=== PATIENT | female | born 1955 | race Caucasian/White ===

== ENCOUNTER 2020-04-08 08:35 | Outpatient (CLI) | payer OTHER, SELFPAY ==
--- NOTE | ~2020-04-08 | MM_ITS ---
CORRECTED REPORT Ordering doctor corrected, changed to Dr. Silvestre Willoughby. 04/14/20 sef EXAMINATION: MM screening [facility] BI w [facility] HISTORY: Screening mammogram TECHNIQUE: Craniocaudal and mediolateral oblique 3-D tomosynthesis images were obtained and synthetic 2-D images were generated. CAD analysis was submitted and interpreted. COMPARISON: 07/12/2018, 03/29/2017 bilateral digital screening mammogram examinations 04/04/2017 diagnostic left digital mammogram and complete left breast ultrasound BREAST PARENCHYMAL COMPOSITION: The breasts are heterogeneously dense, which may obscure small masses. FINDINGS: Stable architectural distortion on the left likely related to history of prior benign left breast (biopsy. There is no evidence of suspicious mass, calcification, or interval architectural distortion to suggest malignancy in either breast. There has been no suspicious interval change. IMPRESSION: 1. No mammographic evidence of malignancy. 2. Recommend routine screening mammography in one year. BI-RADS Category 2: Benign finding(s). Reviewed, dictated and finalized at location A. MTDD
== END 2020-04-08 08:36 | disposition home or self-care (01) ==
PROVIDERS: PCP Student in an Organized Health Care Education/Training Program; Visit Provider Student in an Organized Health Care Education/Training Program
DX: Z12.31 Encounter for screening mammogram for malignant neoplasm of breast (principal)
CPT/HCPCS: 77063; 77067

== ENCOUNTER 2021-05-23 08:36 | Outpatient (CLI) | payer OTHER, SELFPAY ==
--- NOTE | ~2021-05-23 | MM_ITS ---
EXAMINATION: MM screening [facility] BI w [facility] HISTORY: Screening TECHNIQUE: Craniocaudal and mediolateral oblique 3-D tomosynthesis images were obtained and synthetic 2-D images were generated. CAD analysis was submitted and interpreted. COMPARISON: Comparison to multiple prior studies sequentially, with oldest reviewed study dated 02/03. BREAST PARENCHYMAL COMPOSITION: The breasts are heterogeneously dense, which may obscure small masses . FINDINGS: There is no evidence of suspicious mass, calcification, or architectural distortion to sugg est malignancy in either breast. There has been no suspicious interval change. IMPRESSION: 1. No mammographic evidence of malignancy. 2. Recommend routine screening mammography in one year. BI-RADS Category 1: Negative Reviewed, dictated and finalized at location A.
--- NOTE | ~2021-05-23 | DEXA_ITS ---
Bone Density Report Name: Keren Franco Age: 65 Sex: Female Ethnicity: White Date of : 1955 Indication: osteopenia; height loss; hysterectomy; postmenopausal Referring Provider: Fartun, Silvestre Study: Bone densitometry was performed. Exam Date: May 23, 2021 Accession number: [id number] Bone Density: Region BMD T-score Z-score Classification AP Spine (L1-L4) 0.846 -1.8 0.1 Osteopenia Femoral Neck (Left) 0.659 -1.7 -0.1 Osteopenia Total Hip (Left) 0.808 -1.1 0.3 Osteopenia Total Hip Bilateral Avg 0.826 -1.0 0.4 Osteopenia Femoral Neck (Right) 0.674 -1.6 0.1 Osteopenia Total Hip (Right) 0.842 -0.8 0.5 Normal World Health Organization criteria for BMD impression classify patients as: Normal (T-score at or above -1.0), Osteopenia (T-score between -1.0 and -2.5), or Osteoporosis (T-score at or below -2.5). 10-year Fracture Risk(1): Major Osteoporotic Fracture 9.7% Hip Fracture 1.3% Reported Risk Factors: [place] (), Neck BMD=0.659, BMI=32.2 (1) FRAX(R) Version 3.08. Fracture probability calculated for an untreated patient. Fracture probability may be lower if the patient has received treatment. Previous Exams: Region Exam Age BMD T-score BMD Change BMD Change Date g/cm2 vs Baseline vs Previous AP Spine(L1-L4) 05/23/2021 65 0.846 -1.8 -0.120(-12.4%) 0.017(2.0%) 02/04/2016 60 0.829 -2.0 -0.137(-14.1%) -0.137(-14.1%) 09/19/2007 51 0.966 -0.7 Total Hip(Left) 05/23/2021 65 0.808 -1.1 -0.157(-16.3%) -0.067(-7.7%)* 02/04/2016 60 0.875 -0.5 -0.090(-9.3%)# -0.090(-9.3%)# 09/19/2007 51 0.965 0.2 Total Hip(Right) 05/23/2021 65 0.842 -0.8 -0.144(-14.6%) -0.068(-7.5%)* 02/04/2016 60 0.911 -0.3 -0.076(-7.7%)# -0.076(-7.7%)# 09/19/2007 51 0.987 0.4 *Denotes significance at 95% confidence level, LSC for AP Spine = 0.022 g/cm2, LSC for Total Hip = 0.027 g/cm2 Clinical Information Provided by Patient: Has used the following medications: Vitamin D, Calcium Has the following medical conditions: Hysterectomy Patient maximum height was 63 Menopause Age: 48 No regular weight bearing exercise Does not regularly consume dairy products Drinks caffeinated beverages Onset of menses at age 9 Number of children 4 Impression: The patient has low bone mass, based on the Total Spine T-score. The patient has an estimated ten-year risk of hip fracture of 1.3% and an estimated ten-year risk of ma
== END 2021-05-23 08:37 | disposition home or self-care (01) ==
LOC: ANHIMG 08:36
PROVIDERS: PCP Student in an Organized Health Care Education/Training Program; Visit Provider Student in an Organized Health Care Education/Training Program
DX: Z12.31 Encounter for screening mammogram for malignant neoplasm of breast (principal); Z78.0 Asymptomatic menopausal state; M85.88 Other specified disorders of bone density and structure, other site; M85.852 Other specified disorders of bone density and structure, left thigh; M85.851 Other specified disorders of bone density and structure, right thigh
CPT/HCPCS: 77063; 77067; 77080

== ENCOUNTER 2022-07-04 09:57 | Outpatient (CLI) | payer OTHER, SELFPAY ==
--- NOTE | ~2022-07-04 | MM_ITS ---
EXAMINATION: MM screening [facility] BI w [facility] HISTORY: Screening mammogram TECHNIQUE: Craniocaudal and mediolateral oblique 3-D tomosynthesis images were obtained and synthetic 2-D images were generated. CAD analysis was submitted and interpreted. COMPARISON: 05/23/2021, 04/08/2020, 07/12/2018 BREAST PARENCHYMAL COMPOSITION: The breasts are heterogeneously dense, which may obscure small masses . FINDINGS: There is no suspicious mass, calcification, or architectural distortion to suggest malignan cy in either breast. There has been no suspicious interval change. IMPRESSION: 1. No mammographic evidence of malignancy. 2. Recommend routine screening mammography in one year. BI-RADS Category 1: Negative Reviewed, dictated and finalized at location A.
== END 2022-07-04 09:58 | disposition home or self-care (01) ==
PROVIDERS: PCP Student in an Organized Health Care Education/Training Program; Visit Provider Student in an Organized Health Care Education/Training Program
DX: Z12.31 Encounter for screening mammogram for malignant neoplasm of breast (principal)
CPT/HCPCS: 77063; 77067

== ENCOUNTER 2023-07-13 08:16 | Outpatient (CLI) | payer OTHER, SELFPAY ==
--- NOTE | ~2023-07-13 | DEXA_ITS ---
Bone Density Report Name: PAULA WEN Age: 67 Sex: Female Ethnicity: White Date of : 1955 Indication: osteopenia; height loss; hysterectomy; postmenopausal Referring Provider: MINNIE, ABE Study: Bone densitometry was performed. Exam Date: July 13, 2023 Accession number: [id number] Bone Density: Region BMD T-score Z-score Classification AP Spine(L1-L4) 0.810 -2.2 -0.1 Osteopenia Femoral Neck (Left) 0.657 -1.7 0.0 Osteopenia Total Hip (Left) 0.780 -1.3 0.2 Osteopenia Femoral Neck (Right) 0.694 -1.4 0.4 Osteopenia Total Hip (Right) 0.804 -1.1 0.3 Osteopenia Total Hip Mean 0.792 -1.2 0.3 Osteopenia World Health Organization criteria for BMD impression classify patients as: Normal (T-score at or above -1.0), Osteopenia (T-score between -1.0 and -2.5), or Osteoporosis (T-score at or below -2.5). 10-year Fracture Risk(1): Major Osteoporotic Fracture 10.0% Hip Fracture 1.6% Reported Risk Factors: [place] (), Neck BMD=0.657, BMI=31.5 (1) FRAX(R) Version 3.08. Fracture probability calculated for an untreated patient. Fracture probability may be lower if the patient has received treatment. Previous Exams: Region Exam Age BMD T-score BMD Change BMD Change Date g/cm2 vs Baseline vs Previous AP Spine (L1-L4) 07/13/2023 67 0.810 -2.2 -0.019 (-2.3%) -0.036 (-4.2%) 05/23/2021 65 0.846 -1.8 0.017 (2.0%) 0.017 (2.0%) 02/04/2016 60 0.829 -2.0 Total Hip(Left) 07/13/2023 67 0.780 -1.3 -0.096 (-10.9% -0.029 (-3.5%) 05/23/2021 65 0.808 -1.1 -0.067 (-7.7%) -0.067 (-7.7%) 02/04/2016 60 0.875 -0.5 Total Hip(Right) 07/13/2023 67 0.804 -1.1 -0.107 (-11.8% -0.039 (-4.6%) 05/23/2021 65 0.842 -0.8 -0.068 (-7.5%) -0.068 (-7.5%) 02/04/2016 60 0.911 -0.3 *Denotes significance at 95% confidence level, LSC for AP Spine = 0.022 g/cm2, LSC for Total Hip = 0.027 g/cm2 # Denotes dissimilar scan types or analysis methods Clinical Information Provided by Patient: Has used the following medications: Vitamin D, Calcium Has the following medical conditions: Hysterectomy Patient maximum height was 63 Menopause Age: 48 Does not regularly consume dairy products Drinks caffeinated beverages Onset of menses at age 10 Number of children 4 Impression: The patient has low bone mass, based on the Total Spine T-score. The patient has an estimated ten-year risk of hip fracture of
--- NOTE | ~2023-07-13 | MM_ITS ---
EXAMINATION: MM screening [facility] BI w [facility] HISTORY: Screening TECHNIQUE: Craniocaudal and mediolateral oblique 3-D tomosynthesis images were obtained and synthetic 2-D images were generated. CAD analysis was submitted and interpreted. COMPARISON: Comparison to multiple prior studies sequentially, with oldest reviewed study dated 02/2017. BREAST PARENCHYMAL COMPOSITION: The breasts are heterogeneously dense, which may obscure small masses FINDINGS: There is no evidence of suspicious mass, calcification, or architectural distortion to sugg est malignancy in either breast. There has been no suspicious interval change. IMPRESSION: 1. No mammographic evidence of malignancy. 2. Recommend routine screening mammography in one year. BI-RADS Category 1: Negative Reviewed, dictated and finalized at location A.
== END 2023-07-13 08:17 | disposition home or self-care (01) ==
LOC: ANHIMG 08:21
PROVIDERS: PCP Student in an Organized Health Care Education/Training Program; Visit Provider Student in an Organized Health Care Education/Training Program
DX: Z12.31 Encounter for screening mammogram for malignant neoplasm of breast (principal); Z78.0 Asymptomatic menopausal state; M85.88 Other specified disorders of bone density and structure, other site; M85.852 Other specified disorders of bone density and structure, left thigh; M85.851 Other specified disorders of bone density and structure, right thigh
CPT/HCPCS: 77063; 77067; 77080

== ENCOUNTER 2024-08-26 08:12 | Outpatient (CLI) | payer OTHER, SELFPAY ==
--- NOTE | ~2024-08-26 | MM_ITS ---
EXAMINATION: MM screening [facility] BI w [facility] HISTORY: Screening TECHNIQUE: Craniocaudal and mediolateral oblique 3-D tomosynthesis images were obtained and synthetic 2-D images were generated. CAD analysis was submitted and interpreted. COMPARISON: Comparison to multiple prior studies sequentially, with oldest reviewed study dated 07/12. BREAST PARENCHYMAL COMPOSITION: Dense: The breasts are heterogeneously dense, which may obscure small masses FINDINGS: There is no evidence of suspicious mass, calcification, or architectural distortion to sugg est malignancy in either breast. There has been no suspicious interval change. IMPRESSION: 1. No mammographic evidence of malignancy. 2. Recommend routine screening mammography in one year. BI-RADS Category 1: Negative Reviewed, dictated and finalized at location B.
== END 2024-08-26 08:13 | disposition home or self-care (01) ==
PROVIDERS: PCP Student in an Organized Health Care Education/Training Program; Visit Provider Student in an Organized Health Care Education/Training Program
DX: Z12.31 Encounter for screening mammogram for malignant neoplasm of breast (principal)
CPT/HCPCS: 77063; 77067

== ENCOUNTER 2025-07-09 09:35 | Outpatient (CLI) | payer OTHER, SELFPAY | END 2025-07-09 09:36 | disposition home or self-care (01) | LOC: ANHAUDIO 09:36 | PROVIDERS: PCP Student in an Organized Health Care Education/Training Program; Visit Provider Student in an Organized Health Care Education/Training Program | DX: H91.90 Unspecified hearing loss, unspecified ear (principal) | CPT/HCPCS: 92557; 92567 ==

== ENCOUNTER 2025-09-17 08:39 | Outpatient (CLI) | payer OTHER, SELFPAY ==
--- NOTE | ~2025-09-17 | MM_ITS ---
EXAMINATION: MM screening jessie BI w katya HISTORY: Screening TECHNIQUE: Craniocaudal and mediolateral oblique 3-D tomosynthesis images were obtained and synthetic 2-D images were generated. CAD analysis was submitted and interpreted. COMPARISON: Comparison to multiple prior studies sequentially, with oldest reviewed study dated , 04/08/2020 BREAST PARENCHYMAL COMPOSITION: The breasts are heterogeneously dense, which may obscure small masses. FINDINGS: There is no evidence of suspicious mass, calcification, or architectural distortion to suggest malignancy in either breast. IMPRESSION: 1. No mammographic evidence of malignancy. 2. Recommend routine screening mammography in one year. BI-RADS Category 1: Negative Reviewed, dictated and finalized at location B.
--- OUTSIDE RECORDS SUMMARY | 2025-09-17 08:53 | XMS_ITS | Encounter Summary ---
Author Organization [facility] Address [address] [place] [id number] Care Team Providers Care Seamstress Fitter Name Role Phone Silvestre Willoughby DO Primary Care Provider + Encounter Details Date Type Department Care Team (Late Contact Info) Description 08/28/2024 PreAppst Message Enc [facility] Family & Internal Medicine [facility] [address] [place] [address] Silvestre Willoughby DO [address] [place], [place] [phone] Mammogram Results Social History Tobacco Use Types Packs/Day Years Used Date Smoking Tobacco: Never Passive Smoke Exposure: Past Smokeless Tobacco: Never Comments:Not a smoker Alcohol Use Standard Drinks/Week Comments Never 0 (1 standard drink = 0.6 oz pur e alcohol) AUDIT-C Answer Date Recorded Frequency of Alcohol Consumption Never 03/29/2020 Average Number of Drinks Not on file 020 Frequency of Binge Drinking Not on file 02/2020 PHQ-2 Answer Date Recorded Patient Health Questionnaire-2 Score 0 06/23/2024 Comments No Sex and Gender Information Value Date Recorded Sex Assigned at Female 04/30/2025 8:07 AM CDT Legal 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 Gender Identity Female 04/30/2025 8:07 AM CDT Sexual Orientation Not on file Occupation Industry Job Start Date Job End Date Not on file Not on file Not on file Not on file documented as of this encounter Plan of Treatment Upcoming Encounters Date Type Department Care Team (Late st Contact Info) Description 06/29/2026 7:20 AM CDT Office Visit [facility] Family & Internal Medicine - [address] [phone] Silvestre Willoughby DO [address] [place] [phone] documented as of this encounter Visit Diagnoses Not on filedocumented in this encounter Additional Health Concerns Assessment Noted Time PHQ-9 Depression Total Score: 1 04/13/20 21 9:47 AM CDT documented as of this encounter Care Teams Seamstress Fitter Relationship Specialty Start Date End Date Silvestre Willoughby DO [address] [place] [id number] PCP - General FAMILY PRACTICE 03/29/20 documented as of this encounter
--- OUTSIDE RECORDS SUMMARY | 2025-09-17 08:53 | XMS_ITS | Clinical Summary ---
Author Organization [facility] Address [address] [place] [address] Care Team Providers Care Police Chief Deputy Name Role Phone Silvestre Willoughby Primary Care Provider + Allergies Active Allergy Reactions Criticality Noted Date Comments Tape Hives Low 04/06/2021 Not IV tape, has only had it happen with surgical barrier used with incisions Medications Multiple Vitamins-Minerals (HEALTHY EYES/LUTEIN OR) Acti ve aspirin EC 325 MG tablet Take 1 tablet (325 mg total) by mouth as needed for Pain. Active B complex-C Cap capsule Take 1 capsule by mouth daily. Active calcium carb-cholecalcife rol (CALTRATE+D) 600-10 MG-MCG Tab tablet Take 1 tablet by mouth 2 (two) times daily. Active Vitamin D3 (CHOLECALCIFEROL) 50 mcg tablet Take 1 tablet (2,000 Units total) by mouth daily. Active vitamin C (ASCORBIC ACID) 1000 MG tablet Take 1 tablet (1,000 mg total) by mouth daily. Active losartan (COZAAR) 50 MG tabletIndications :Primary hypertension Take 1 tablet (50 mg total) by mouth daily. 90 tablet 3 5 Active omeprazole (PRILOSEC) 40 MG capsuleIndication s:Gastroesophagea l reflux disease, unspecified whether esophagitis present,Annual physical exam Take 1 capsule (40 mg total) by mouth daily. 90 capsule 3 5 Active Active Problems Problem Noted Date Diagnosed Date Hyperlipidemia, unspecified hyperlipidemia type 06/23/2024 Vitamin D deficiency 06/23/2024 Chronic pain of both knees 06/23/2024 Osteopenia, unspecified location 04/06/2021 Essential hypertension 05/03/2020 BMI 31.0-31.9,adult 03/29/2020 Gastroesophageal reflux dise ase, unspecified whether esophagitis present 03/29/2020 Elevated blood pressure reading 03/29/2020 Abnormal mammogram 04/05/2017 Encounters Date Type Department Care Team Description 07/01/2025 Results Follow-Up [facility] Family & Internal Medicine [address] [phone] Silvestre Willoughby, HEMOGLOBIN, GLYCOSYLATED, URIC ACID BLOOD, VITAMIN D, 25 OH, Additional followed-up results: 4 06/25/2025 7:20 AM CDT Office Visit [facility] Family & Internal [address] [address] Silvestre Willoughby, Annual 06/25/2025 Travel from Last 3 Months Immunizations Immunization Administration Dates Next Due Flublok (Quadrivalent) 01/29/2019 Influenza (Generic) 01/29/2019 Pneumococcal (Pneumovax 23) 01/29/2019 Pneumococcal (Prevnar 13) 04/11/2023 Tdap (Generic) 01/28/2018 Family History Medical History Relation Comments Heart Attack Brother Stent Cardiac Brother Heart Attack Father Dementia Mother Hypertension Mother Valve Disease Mother Aortic Breast Cancer Paternal Aunt Heart Attack Paternal Grandfather Heart Attack Paternal Grandmother CABG Sister 1 Coronary artery disease Sister 1 Heart Attack Sister 1 Hypertension Sister 1 Heart murmur Sister 2 Hypertension Sister 2 Hypertension Sister 3 Diabetes Sister 4 Hypertension Sister 4 Myocaridal bridge Sister 4 Relation Status Comments Brother Alive Father Mother Alive Paternal Aunt Paternal Grandfather Paternal Grandmother Sister 1 Alive Sister 2 Alive Sister 3 Alive Sister 4 Alive Social History Tobacco Use Types Packs/Day Years Used Date Smoking Tobacco: Never Passive Smoke Exposure: Past Smokeless Tobacco: Never Tobacco Cessation:Counseling Given: No Comments:Not a smoker Alcohol Use Standard Drinks/Week Comments Never 0 (1 standard drink = 0.6 oz pur e alcohol) AUDIT-C Answer Date Recorded Frequency of Alcohol Consumption Never 03/29/2020 Average Number of Drinks Not on file 020 Frequency of Binge Drinking Not on file 02/2020 PHQ-2 Answer Date Recorded Patient Health Questionnaire-2 Score 0 04/30/2025 Comments No Sex and Gender Information Value Date Recorded Sex Assigned at Female 04/30/2025 8:07 AM CDT 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 Gender Identity Female 04/30/2025 8:07 AM CDT Sexual Orientation Not on file Occupation Industry Job Start Date Job End Date Not on file Not on file Not on file Not on file Last Filed Vital Signs Vital Sign Reading Time Taken Comments Blood Pressure 136/70 06/25/2025 7:20 AM CDT Pulse 60 06/25/2025 7:20 AM CDT Temperature 36 C (96.8 F) 06/25/2025 7:20 AM CDT Respiratory Rate 16 04/30/2025 8:08 AM CDT Oxygen Saturation 98% 06/25/2025 7:20 AM CDT Inhaled Oxygen Concentration - - Weight 75.3 kg (166 lb 1.6 oz) 06/25/2025 7:20 A M CDT Height 162.6 cm (5' 4) 06/25/2025 7:20 AM CDT Body Mass Index 28.51 06/25/2025 7:20 AM CDT Plan of Treatment Upcoming Encounters Date Type Department Care Team (Late st Contact Info) Description 06/29/2026 7:20 AM CDT Office Visit [facility] Family & Internal Medicine [address] [phone] Silvestre Willoughby, [address] [place] [address] Health Maintenance Due Date Last Done Comments Zoster Vaccines (1 of 2) 2003 Annual Medicare Wellness Visit 04/14/2022 04/13/2021 Dexa Scan (General) 07/13/2025 07/13/2023, 05/23/2021, 02/04/2016, Additional history exists COVID-19 Vaccine (1 - season) 2025 Influenza Adult (#1) 2025 01/29/2019, 01/30/20 19 DTaP, Tdap and Td Vaccines (2 - Td or Tdap) 01/29/2028 01/28/2018 RSV Immunization or 60+ Years (1 - 1-dose 75+ series) 2028 Colorectal Cancer Screening Colonoscopy (10 Years) 08/15/2031 08/15/2021, 08/15/2021, 08/15/2021 Hepatitis C Completed 03/29/2020 Pneumococcal Vaccine: 50+ Years Completed 04/11/2023, 01/29/2019 PHQ-2 (Physician [place]) Completed 04/30/2025 Hepatitis A Vaccines Aged Out No long er eligible based on patient's age to complete this topic Meningococcal B Vaccine Aged Out No l onger eligible based on patient's age to complete this topic Meningococcal Vaccine Aged Out No annelise brittaney eligible based on patient's age to complete this topic RSV Immunizations Under 20 Months Aged Out No longer eligible based on patient's age to complete this topic Procedures Procedure Name Priority Date/Time Associated Diagnosis Comments CBC W/DIFF AUTOMATED Routine 06/25/2025 7:55 AM CDT Hyperlipidemia, unspecified hyperlipidemia type Elevated fasting glucose Osteopenia, unspecified location COMPREHENSIVE METABOLIC PANEL Routine 06/25/2025 7:55 AM CDT Hyperlipidemia, unspecified hyperlipidemia type Elevated fasting glucose Osteopenia, unspecified location TSH W/REFLEX Routine 06/25/2025 7:55 AM CDT Hyperlipidemia, unspecified hyperlipidemia type Elevated fasting glucose Osteopenia, unspecified location LIPID PANEL Routine 06/25/2025 7:55 AM CDT Hyperlipidemia, unspecified hyperlipidemia type Elevated fasting glucose Osteopenia, unspecified location VITAMIN D, 25 OH Routine 06/25/2025 7:55 AM CDT Hyperlipidemia, unspecified hyperlipidemia type Elevated fasting glucose Osteopenia, unspecified location URIC ACID BLOOD Routine 06/25/2025 7:55 AM CDT Hyperlipidemia, unspecified hyperlipidemia type Elevated fasting glucose Osteopenia, unspecified location HEMOGLOBIN, GLYCOSYLATED Routine 06/25/2025 7:55 AM CDT Hyperlipidemia, unspecified hyperlipidemia type Elevated fasting glucose Osteopenia, unspecified location COLLECTION VENOUS BLOOD VENIPUNCTURE Routine 06/25/2025 7:34 AM CDT Hyperlipidemia, unspecified hyperlipidemia type Elevated fasting glucose Osteopenia, unspecified location BONE DENSITY GENERIC (SCAN ORDER) 07/13/2023 COLONOSCOPY Routine 08/15/2021 8:13 AM CDT HEPATITIS C ANTIBODY Routine 03/29/2020 8:03 AM CDT Encounter for preventative adult health care examination Need for hepatitis C screening test from Last 3 Months or Most Recently Relevant to Health Maintenance Results * TSH W/REFLEX (06/25/2025 7:55 AM CDT) TSH 1.990 0.358 - 3.740 uIU/ML 06/25/2025 5:29 PM CDT [facility] 06/25/2025 7:55 AM CDT Silvestre Willoughby DO LABORATORY Final Re sult Performing Organization Address City/[facility]/ZIP Co de Phone Number [address] [address], [place] [phone] * (ABNORMAL) HEMOGLOBIN, GLYCOSYLATED (06/25/2025 7:55 AM CDT) [facility] HGB A1C 5.6 4.5 - 6.2 % 06/25/2025 5:07 PM CDT [facility] ESTIMATED AVG GLUCOSE 114(H) 74 - 106 MG/DL 06/25/2025 5:07 PM CDT [facility] 06/25/2025 7:55 AM CDT Silvestre Willoughby DO LABORATORY Final Re sult Performing Organization Address City/[facility]/ZIP Co de Phone Number [address] [address], [place] [phone] * (ABNORMAL) COMPREHENSIVE METABOLIC PANEL (06/25/2025 7:55 AM CDT) [facility] SODIUM S/P/B 144 136 - 145 MMOL/L 06/25/2025 5:29 PM CDT [facility] POTASSIUM S/P/B 4.2 3.5 - 5.1 MMOL/L 06/25/2025 5:29 PM CDT [facility] CHLORIDE S/P/B 108(H) 98 - 107 MMOL/L 06/25/2025 5:29 PM CDT [facility] CO2 28.0 21 - 32 MMOL/L 06/25/2025 5:29 PM CDT [facility] GLUCOSE 106(H) 70 - 99 MG/DL 06/25/2025 5:29 PM CDT [facility] BUN 18 7 - 18 MG/DL 06/25/2025 5:29 PM T [facility] CREATININE S/P/B 0.70 0.55 - 1.02 MG/DL 06/25/2025 5:29 PM CDT [facility] CALCIUM S/P/B 9.0 8.4 - 10.5 MG/DL 06/25/2025 5:29 PM CDT [facility] BILIRUBIN TOTAL S/P/B 0.6 0.2 - 1.0 MG/DL 06/25/2025 5:29 PM CDT [facility] ALKALINE PHOSPHATASE S/P/B 73 55 - 142 U/L 06/25/2025 5:29 PM CDT [facility] AST 13(L) 15 - 37 U/L 06/25/2025 5:29 PM CDT [facility] ALT 22 14 - 59 U/L 06/25/2025 5:29 PM CDT [facility] TOTAL PROTEIN S/P/B 6.5 6.4 - 8.2 G/DL 06/25/2025 5:29 PM T [facility] ALBUMIN S/P/B 3.8 3.4 - 5.0 G/DL 06/25/2025 5:29 PM CDT [facility] ANION GAP 8.0 5 - 15 MMOL/L 06/25/2025 5:29 PM CDT [facility] Comment:REFERENCE RANGE NOT ESTABLISHED OSMOLALITY (CALC) 300 MOSM/KG 025 5:29 PM CDT [facility] Comment:REFERENCE RANGE NOT ESTABLISHED GFR ESTIMATE >90 >90 ML/MIN/1. 73 M2 06/25/2025 5:29 PM CDT [facility] GFR NOTES GFR REFERENCE S: 06/25/2025 5:29 PM CDT [facility] Comment: THE ESTIMATED GFR IS CALCULATED USING THE 2020 CKD-EPI EQUATION. THE FOLLOWING CATEGORIES FOR GRADING RENAL FUNCTION ARE RECOMMENDED BY THE INTERNATIONAL SOCIETY OF NEPHROLOGY (KDIGO 2012 CLINICAL PRACTICE GUIDELINE). G1,NORMAL OR HIGH: >89 ml/min/1.73 m2 G2,MILDLY DECREASED: 60-89 ml/min/1.73 m2 G3A,MILDLY TO MODERATELY DECREASED: 45-59 ml/min/1.73 m2 G3B,MODERATELY TO SEVERELY DECREASED: 30-44 ml/min/1.73 m2 G4,SEVERELY DECREASED: 15-29 ml/min/1.73 m2 G5,KIDNEY FAILURE: <15 ml/min/1.73 m2 06/25/2025 7:55 AM CDT Silvestre Willoughby DO LABORATORY Final Re sult [facility] [address] [place] [address], [place] [phone] * (ABNORMAL) LIPID PANEL (06/25/2025 7:55 AM CDT) CHOLESTEROL 178 <200 MG/DL 06/25/2025 5:29 PM CDT [facility] TRIGLYCERIDES 59 <150 MG/DL 06/25/2025 5:29 PM CDT [facility] HDL 57 >40 MG/DL 06/25/2025 5:29 PM CDT [facility] LDL-C 109(H) <100 MG/DL 06/25/2025 5:29 PM CDT [facility] VLDL CALCULATION 12 5 - 28 MG/DL 06/25/2025 5:29 PM CDT [facility] CHOL/HDL RATIO 3.1 0.0 - 4.0 06/25/2025 5:29 PM CDT [facility] LDL/HDL 1.9 0.41 - 2.13 06/25/2025 5:29 PM CDT [facility] NON HDL CHOLESTEROL 121 <140 MG/DL 06/25/2025 5:29 PM CDT [facility] 06/25/2025 7:55 AM CDT Silvestre Willoughby DO LABORATORY Final Re sult [facility] [address] [place] [address], * (ABNORMAL) CBC W/DIFF AUTOMATED (06/25/2025 7:55 AM CDT) WBC 3.76(L) 4.00 - 10.80 x10'3/uL 06/25/2025 3:30 PM CDT [facility] RBC 4.15 4.10 - 5.40 x10'6/uL 06/25/2025 3:30 PM CDT [facility] HGB 12.9 12.0 - 16.0 G/DL 06/25/2025 3:30 PM CDT [facility] HCT 39.3 36.0 - 47.0 % 06/25/2025 3:30 PM CDT [facility] MCV 94.7 78.0 - 100.0 FL 06/25/2025 3:30 PM CDT [facility] MCH 31.1(H) 27.0 - 31.0 PG 06/25/2025 3:30 PM CDT [facility] MCHC 32.8(L) 33.0 - 36.0 G/DL 06/25/2025 3:30 PM CDT [facility] RDW 12.9 11.5 - 14.5 % 06/25/2025 3:30 PM CDT [facility] PLT 243 150 - 350 x10'3/uL 06/25/2025 3:30 PM CDT [facility] MPV 10.4 7.4 - 10.4 FL 06/25/2025 3:30 PM CDT [facility] DIFFERENTIAL TYPE AUTOMATED DIFFERENTIAL 06/25/2025 3:30 PM CDT [facility] NEUTROPHILS % 62.5 % 06/25/2025 3:30 PM CDT [facility] LYMPHOCYTES % 24.7 % 06/25/2025 3:30 PM CDT [facility] MONOCYTES % 10.1 % 06/25/2025 3:30 PM CDT [facility] EOSINOPHILS % 2.4 % 06/25/2025 3:30 PM CDT [facility] BASOPHILS % 0.3 % 06/25/2025 3:30 PM CDT [facility] IMMATURE GRANS % 0.0 % 06/25/2025 3:30 PM CDT [facility] ABS. NEUTROPHILS 2.35 1.60 - 8.30 x10'3/uL 06/25/2025 3:30 PM CDT [facility] ABS. LYMPHOCYTES 0.93 0.80 - 4.70 x10'3/uL 06/25/2025 3:30 PM CDT [facility] ABS. MONOCYTES 0.38 0.00 - 1.50 x10'3/uL 06/25/2025 3:30 PM CDT [facility] ABS. EOSINOPHILS 0.09 0.00 - 0.40 x10'3/uL 06/25/2025 3:30 PM CDT [facility] ABS. BASOPHILS 0.01 0.00 - 0.20 x10'3/uL 06/25/2025 3:30 PM CDT [facility] ABS. IMMATURE GRANULOCYTES 0.00 0.00 - 0.03 x10'3/uL 06/25/2025 3:30 PM CDT [facility] 06/25/2025 7:55 AM CDT Silvestre Willoughby LABORATORY Final Re sult Performing Organization Address City/[facility]/ZIP Co de Phone Number [facility] [address] [place] [address], * VITAMIN D, 25 OH (06/25/2025 7:55 AM CDT) VITAMIN D 25 HYDROXY TOTAL S/P/B 35.7 30 - 100 NG/ML 06/25/2025 5:29 PM CDT [facility] Comment: DEFICIENT <20 INSUFFICIENT 20-30 SUFFICIENT 30-100 06/25/2025 7:55 AM CDT Silvestrejoseluis Willoughby LABORATORY Final Re sult Performing Organization Address City/[facility]/ZIP Co de Phone Number [facility] [address] [place] [address], * URIC ACID BLOOD (06/25/2025 7:55 AM CDT) URIC ACID 3.3 2.6 - 6.0 MG/DL 06/25/2025 6:50 PM CDT [facility] 06/25/2025 7:55 AM CDT Silvestre Willoughby DO LABORATORY Final Re sult [facility] [address] [place] [address], [place] [phone] * BONE DENSITY GENERIC (07/13/2023) Anatomical Region Laterality Modality Other 07/13/2023 [facility] Scanned SCANNING Final Resu lt * COLONOSCOPY (08/15/2021) Documents Scanned SCANNING Final Result Performing Organization Address City/[facility] Co de Phone Number [facility] * HEPATITIS C ANTIBODY (03/29/2020 8:03 AM CDT) HEPATITIS C AB NON-REACTI VE NON-REACTI VE 03/29/2020 9:50 PM CDT [facility] 03/29/2020 8:03 AM CDT Silvestre Willoughby DO LABORATORY Final Re sult Performing Organization Address City/[facility] Co de Phone Number [facility] [address] [place] [address], [place] [phone] from Last 3 Months or Most Recently Relevant to Health Maintenance Insurance [employer] Care Teams Police Chief Deputy Relationship Specialty Start Date End Date Silvestre Willoughby DO [address] [place] [phone] PCP - General FAMILY PRACTICE 03/29/20
--- OUTSIDE RECORDS SUMMARY | 2025-09-17 08:53 | XMS_ITS | Encounter Summary ---
Author Organization [facility] Address [address] [place] [address] Care Team Providers Care Hebrew Teacher Name Role Phone Silvestre Willoughby Ju [place] Primary Care Provider + Encounter Details Date Type Department Care Team (Late st Contact Info) Description 08/12/2021 Prep for Procedure [facility] [place] [address] Ethan Bautista DO [address] [place] [address] [address] [place] [address] Social History Tobacco Use Types Packs/Day Years Used Date Smoking Tobacco: Never Smokeless Tobacco: Never Alcohol Use Standard Drinks/Week Comments Never 0 (1 standard drink = 0.6 oz pur e alcohol) AUDIT-C Answer Date Recorded Frequency of Alcohol Consumption Never 03/29/2020 Average Number of Drinks Not on file 020 Frequency of Binge Drinking Not on file 02/2020 PHQ-2 Answer Date Recorded PHQ-2 Score - If the patient scores above 3, please move on to questions 3-9 0 04/13/2021 Comments No Sex and Gender Information Value Date Recorded Sex Assigned at Female 04/30/2025 8:07 AM CDT 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 No / Unsure 08/15/2021 7:41 AM CDT documented as of this encounter Functional Status * Calculated C-SSRS Risk Score (Lifetime/Recent) Answer Date of Assessment Author Status No Risk Indicated 08/15/2021 8:12 AM CDT Hellen Story RN Active * [place] Suicide Severity Rating Scale (Screener/Recent Self-Report) Question Answer Date of Assessment Author Status 1. Wish to be (Past 1 Month) No 08/15/2021 8:12 AM CDT Hellen Story RN Activ e 2. Non-Specific Active Suicidal Thoughts (Past 1 Month) No 08/15/2021 8:12 AM CDT Hellen Story RN Activ e 6. Suicidal Behavior (Lifetime) No 08/15/2021 8:12 AM CDT Hellen Story RN Activ e documented as of this encounter Plan of Treatment Upcoming Encounters Date Type Department Care Team (Late st Contact Info) Description 06/29/2026 7:20 AM CDT Office Visit [facility] Family & Internal Medicine [address] [phone] Silvestre Willoughby, [address] [place] [address] documented as of this encounter Results * CORONAVIRUS (COVID 19) (08/12/2021 11:10 AM CDT) SPEC DESCRIPTION NASAL 08/12/20 21 12:16 PM CDT [facility] CORONAVIRUS SARS COV 2 PCR (RESP) NEGATIVE NEGATIVE 08/12/2021 8:32 PM CDT [facility] Comment: THE SARS-CoV-2 TEST HAS BEEN AUTHORIZED BY THE FDA UNDER AN EUA FOR USE BY AUTHORIZED LABORATORIES. PERFORMED BY NUCLEIC ACID AMPLIFICATION PCR FIRST TEST YES 08/12/2021 12:16 PM CDT [facility] EMPLOYED IN HEALTHCARE NO 08/12/2021 12:16 PM CDT [facility] SYMPTOMATIC DEFINED BY CDC NO 08/12/2021 12:16 PM CDT [facility] HOSPITALIZATION STATUS NO 08/12/2021 12:16 PM CDT [facility] PATIENT IN ICU NO 08/12/2021 12:16 PM CDT [facility] RESIDENT OF CONGREGATE CARE NO 08/12/2021 12:16 PM CDT [facility] NASAL STRUCTURE / Unknown 08/12/2021 11:10 AM CDT Ethan Bautista DO MICROBIOLOGY - GENERAL ORDERABL ES Final Result [facility] [address] [place] [address], [place] [phone] [facility] [address] [place] [address], [place] [phone] documented in this encounter Visit Diagnoses Diagnosis Encounter for screening colonoscopy- Primary Special screening for malignant neoplasms, colon documented in this encounter Additional Health Concerns Infection Onset Date Last Indicated Resolved Time COVID-19 Rule Out 08/12/2021 08/12/2021 08/12/2021 8:32 PM CDT Assessment Noted Time PHQ-9 Depression Total Score: 1 04/13/20 21 9:47 AM CDT documented as of this encounter Care Teams Hebrew Teacher Relationship Specialty Start Date End Date Silvestre Willoughby DO [address] [place] [address] PCP - General FAMILY PRACTICE 03/29/20 documented as of this encounter
--- OUTSIDE RECORDS SUMMARY | 2025-09-17 08:53 | XMS_ITS | Encounter Summary ---
Author Organization [facility] Address [address] [place] [address] Care Team Providers Care Naphthol Soaping Machine Operator Name Role Phone Silvestre Willoughby DO Primary Care Provider + Encounter Details Date Type Department Care Team (Late Contact Info) Description 07/16/2023 MyChart Message Enc [facility] Family & Internal Medicine [facility] [address] [place] [address] Silvestre Willoughby DO [address] [place], [place] [phone] Mammogram results Social History Tobacco Use Types Packs/Day Years Used Date Smoking Tobacco: Never Passive Smoke Exposure: Past Smokeless Tobacco: Never Alcohol Use Standard Drinks/Week Comments Never 0 (1 standard drink = 0.6 oz pur e alcohol) AUDIT-C Answer Date Recorded Frequency of Alcohol Consumption Never 03/29/2020 Average Number of Drinks Not on file 020 Frequency of Binge Drinking Not on file 02/2020 PHQ-2 Answer Date Recorded Patient Health Questionnaire-2 Score 0 04/11/2023 Comments No Sex and Gender Information Value Date Recorded Sex Assigned at Female 04/30/2025 8:07 AM CDT 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 Gender Identity Female 04/30/2025 8:07 AM CDT Sexual Orientation Not on file Occupation Industry Job Start Date Job End Date Not on file Not on file Not on file Not on file documented as of this encounter Plan of Treatment Upcoming Encounters Date Type Department Care Team (Late st Contact Info) Description 06/29/2026 7:20 AM CDT Office Visit [facility] Family & Internal Medicine - [address] [phone] Silvestre Willoughby DO [address] [place] [address] documented as of this encounter Visit Diagnoses Not on filedocumented in this encounter Additional Health Concerns Assessment Noted Time PHQ-9 Depression Total Score: 1 04/13/20 21 9:47 AM CDT documented as of this encounter Care Teams Naphthol Soaping Machine Operator Relationship Specialty Start Date End Date Silvestre Willoughby DO [address] [place] [address] PCP - General FAMILY PRACTICE 03/29/20 documented as of this encounter
== END 2025-09-17 08:40 | disposition home or self-care (01) ==
LOC: ANHFOHIMG 08:44
PROVIDERS: PCP Student in an Organized Health Care Education/Training Program; Visit Provider Student in an Organized Health Care Education/Training Program
DX: Z12.31 Encounter for screening mammogram for malignant neoplasm of breast (principal)
CPT/HCPCS: 77063; 77067